=== PATIENT | male | born 1985 | race Caucasian/White ===

== ENCOUNTER 2023-01-31 10:40 | Emergency (ER) | payer OTHER ==
[2023-01-31 10:59] VITALS: BP 117/76; PULSE 80; RESP 16; TEMP 98.7; BMI 32.5
[2023-01-31] MEDS ORDERED: SODIUM CHLORIDE 1,000 ML IV STA (11:29)
[2023-01-31 12:14] LABS: HEMATOCRIT 48.2 % (35.4-49); HEMOGLOBIN 16.3 G/dL (11.7-16.9); MCH 29.9 pg (25.7-33.7); MCHC 33.7 g/dl (32.0-35.9); MEAN CELL VOLUME 88.7 fl (80-96); MEAN PLT VOLUME 10.2 fl (7.5-11.1); PLATELET COUNT 130.8 10^3/uL (134-434); RBC 5.43 10^6/uL (4.00-5.60); WHITE BLOOD COUNT 6.6 10^3/uL (4.0-10.8)
[2023-01-31 12:27] LABS: ALBUMIN 4.5 g/dl (3.4-5.0); BLOOD UREA NITROGEN 15.1 mg/dl (7-18); CALCIUM 9.5 mg/dl (8.5-10.1); CREATININE 1.1 mg/dl (0.6-1.3); POTASSIUM 4.2 mmol/L (3.5-5.1); SGOT/AST 30.9 U/L (15-37); SGPT/ALT 36.2 U/L (7-52); TOT PROT 6.8 g/dl (6.4-8.2)
[2023-01-31 13:06] LABS: PLATELET ESTIMATE SLT DECREASE
[2023-01-31 15:20] LABS: BILIRUBIN,TOTAL 0.7 mg/dL (0.2-1)
== END 2023-01-31 13:01 | disposition home or self-care (01) ==
LOC: FER 10:40
PROC: 3E0337Z Introduction of Electrolytic and Water Balance Substance into Peripheral Vein, Percutaneous Approach (ICD-10-PCS; principal; 2023-01-31)
DX: R42 Dizziness and giddiness (principal); R55 Syncope and collapse; U07.1 COVID-19
CPT/HCPCS: 0241U-QW; 36415; 80053; 85025; 93005; 99284-25